=== PATIENT | female | born 1930 | race Caucasian/White ===

== ENCOUNTER 2016-12-03 09:27 | Emergency (ER) | payer MEDICARE ==
[2016-12-03 13:44] LABS: Hematocrit 41 % (35-47); Hemoglobin 13.8 g/dl (12.0-16.0); Mean Corpuscular HGB Conc 34 g/dl (31-36); Mean Corpuscular Hemoglobin 28 pg (27-31); Mean Corpuscular Volume 84 fL (80-97); Mean Platelet Volume 8 um3 (7.4-10.4); Red Blood Count 4.89 10^6/ul (4.0-5.4); Red Cell Distribution Width 14 % (10.5-15); White Blood Count 6.7 10^3/ul (3.5-10.8)
[2016-12-03 14:00] LABS: Albumin 3.7 g/dL (3.2-5.2); BUN/Creatinine Ratio 22.1 (8-20); EGFR African American 80.7 (>60); EGFR Non-African American 62.7 (>60); Globulin 3.1 g/dL (2-4); Potassium 3.4 mmol/L (3.5-5.0); Total Bilirubin 0.4 mg/dL (0.2-1.0); Total Protein 6.8 g/dL (6.4-8.9)
[2016-12-03 14:01] LABS: Troponin I 0.03 ng/mL (<0.04)
--- NOTE | 2016-12-03 14:31 | RAD ---
HISTORY: Chest pain COMPARISONS: December 17, 2015 VIEWS: 1: frontal portable view of the chest at 2:18 PM FINDINGS: LINES AND TUBES: None. CARDIOMEDIASTINAL SILHOUETTE: The cardiomediastinal silhouette is normal for portable technique. PLEURA: The costophrenic angles are sharp. No pleural abnormalities are noted. LUNG PARENCHYMA: There is hyperinflation. ABDOMEN: The upper abdomen is clear. There is no subphrenic gas. BONES AND SOFT TISSUES: No bone or soft tissue abnormalities are noted. IMPRESSION: NO ACTIVE CARDIOPULMONARY DISEASE.
[2016-12-03 14:47] LABS: TSH (Thyroid Stimulating Horm) 1.75 mcIU/mL (0.34-5.60)
--- NOTE | 2016-12-03 15:18 | ED ---
Harley Matute Benjamin, scribed for Ross Alvarado MD on 12/03/16 at 1345 . Palpitations / Dysrhythmia - HPI Summary HPI Summary: 85yo female presents with fluttering beats for 3 days. Pt takes atenolol but was taken off it 3 days ago and was switched to nadolol by her PCP after being told that atenolol was in shortage. Symptoms Pt denies any pain but reports some heaviness in chest 3 days ago. Heaviness is still present. PMHx of HTN. - History of Current Complaint Chief Complaint: EDDysrhythmPalp Time Seen by Provider: 12/03/16 11:43 Hx Obtained From: Patient Onset/Duration: Sudden Onset, Lasting Days - 3 days ago Character: Fluttering Aggravating: Medication - med change Alleviating: Nothing Associated Signs & Symptoms: Chest Pain - heaviness - Allergy/Home Medications Allergies/Adverse Reactions: Allergies Allergy/AdvReac Type Severity Reaction Status Date / Time No Known Allergies Allergy Verified 12/17/15 20:05 Home Medications: Home Medications Albuterol inh POWDER (NF) [Proair Respiclick] 1 puff INH Q4HR PRN 12/03/16 [ History Confirmed 12/03/16] Aspirin EC Low Dose* [Ecotrin EC Low Dose 81 MG*] 81 mg PO DAILY 12/03/16 [ History Confirmed 12/03/16] Atenolol TAB* [Tenormin TAB* 50 MG] 50 mg PO BID 12/03/16 [History Confirmed 07/15] Fluticasone-Salmeterol 100-50* [Advair Diskus 100-50*] 1 puff INH BID 12/03/16 [ History Confirmed 12/03/16] Hydrochlorothiazide TAB* [Hydrodiuril TAB*] 25 mg PO DAILY 12/03/16 [History Confirmed 12/03/16] LoraTADine TAB(NF) [Claritin 10 MG TAB(NF)] 10 mg PO DAILY PRN 12/03/16 [ History Confirmed 12/03/16] Nadolol TAB* [Corgard TAB*] 40 mg PO DAILY 12/03/16 [History Confirmed 12/03/16] celeCOXIB CAP* [CeleBREX CAP*] 200 mg PO DAILY 12/03/16 [History Confirmed 12/03] PMH/Surg Hx/FS Hx/Imm Hx Cardiovascular History: Reports: Hx Hypertension - Immunization History Immunizations Up to Date: Unable to Obtain/Confirm Infectious Disease History: No Infectious Disease History: Denies: Traveled Outside the [place] in Last 30 Days - Family History Known Family History: Positive: Cardiac Disease - Father - Social History Occupation: Retired Lives: With Family Alcohol Use: None Substance Use Type: Reports: None Hx Tobacco Use: No Smoking Status (MU): Never Smoked Tobacco Review of Systems Constitutional: Negative Eyes: Negative ENT: Negative Positive: Palpitations - flutters, Other - chest heaviness. Negative: Chest Pain Respiratory: Negative Gastrointestinal: Negative Genitourinary: Negative Musculoskeletal: Negative Skin: Negative Neurological: Negative Psychological: Normal All Other Systems Reviewed And Are Negative: Yes Physical Exam Triage Information Reviewed: Yes Vital Signs On Initial Exam: Initial Vitals Temp Pulse Resp BP Pulse Ox 97.4 F 68 20 192/65 98 12/03/16 09:35 12/03/16 09:35 12/03/16 09:35 12/03/16 09:35 12/03/16 09:35 Vital Signs Reviewed: Yes Appearance: Positive: Well-Appearing, No Pain Distress, Well-Nourished Skin: Positive: Warm, Skin Color Reflects Adequate Perfusion, Dry Head/Face: Positive: Normal Head/Face Inspection Eyes: Positive: Normal ENT: Positive: Normal ENT inspection, Hearing grossly normal Neck: Positive: Supple, Nontender Respiratory/Lung Sounds: Positive: Clear to Auscultation, Decreased Breath Sounds - slightly decreased breath sounds Cardiovascular: Positive: RRR, Pulses are Symmetrical in both Upper and Lower Extremities. Negative: Murmur Abdomen Description: Positive: Nontender, Soft Bowel Sounds: Positive: Present Musculoskeletal: Positive: Strength/ROM Intact Neurological: Positive: Sensory/Motor Intact, Alert, Oriented to Person Place, Time Psychiatric: Positive: Affect/Mood Appropriate - [place] Coma Scale Coma Scale Total: 15 Diagnostics - Vital Signs Vital Signs Temp Pulse Resp BP Pulse Ox 12/03/16 12:00 54 15 181/51 96 12/03/16 11:52 56 16 188/71 95 12/03/16 11:50 53 13 95 12/03/16 09:35 97.4 F 68 20 192/65 98 - Laboratory Lab Results: Lab Results 10/05/17 10/05/17 10/05/17 Range/Units 13:35 13:35 13:35 WBC 6.7 (3.5-10.8) 10^3/ul RBC 4.89 (4.0-5.4) 10^6/ul Hgb 13.8 (12.0-16.0) g/dl Hct 41 (35-47) % MCV 84 (80-97) fL MCH 28 (27-31) pg MCHC 34 (31-36) g/dl RDW 14 (10.5-15) % Plt Count 208 (150-450) 10^3/ul MPV 8 (7.4-10.4) um3 Neut % (Auto) 78.7 (38-83) % Lymph % (Auto) 14.3 L (25-47) % [place] % (Auto) 4.1 (1-9) % Eos % (Auto) 2.0 (0-6) % Baso % (Auto) 0.9 (0-2) % Absolute Neuts (auto) 5.2 (1.5-7.7) 10^3/ul Absolute Lymphs (auto) 0.9 L (1.0-4.8) 10^3/ul Absolute Monos (auto) 0.3 (0-0.8) 10^3/ul Absolute Eos (auto) 0.1 (0-0.6) 10^3/ul Absolute Basos (auto) 0.1 (0-0.2) 10^3/ul Absolute Nucleated RBC 0 10^3/ul Nucleated RBC % 0.1 Sodium 133 (133-145) mmol/L Potassium 3.4 L (3.5-5.0) mmol/L Chloride 98 L (101-111) mmol/L Carbon Dioxide 29 (22-32) mmol/L Anion Gap 6 (2-11) mmol/L BUN 19 (6-24) mg/dL Creatinine 0.86 (0.51-0.95) mg/dL Est GFR ( Amer) 80.7 (>60) Est GFR (Non-Af Amer) 62.7 (>60) BUN/Creatinine Ratio 22.1 H (8-20) Glucose 153 H (70-100) mg/dL Lactic Acid 1.5 (0.5-2.0) mmol/L Calcium 9.0 (8.6-10.3) mg/dL Magnesium 2.0 (1.9-2.7) mg/dL Total Bilirubin 0.40 (0.2-1.0) mg/dL AST 15 (13-39) U/L ALT 11 (7-52) U/L Alkaline Phosphatase 67 (34-104) U/L Troponin I 0.03 (<0.04) ng/mL Total Protein 6.8 (6.4-8.9) g/dL Albumin 3.7 (3.2-5.2) g/dL Globulin 3.1 (2-4) g/dL Albumin/Globulin Ratio 1.2 (1-3) TSH 1.75 (0.34-5.60) mcIU/mL Result Diagrams: 12/03/16 13:35 12/03/16 13:35 Lab Statement: Any lab studies that have been ordered have been reviewed, and results considered in the medical decision making process. - Radiology CXR Xray Interpretation: No Acute Changes Radiology Interpretation Completed By: Radiologist - ED physician has reviewed this radiology report and agrees. Course/Dx - Course Course Of Treatment: Ms. Otto has not felt well and had chest fluttering since she was switch from atenlol to nadolol 3 daqys ago. Her W/U here was negative and she was stable so I recommended she contact Dr. Oneal tomorrow try to go back on the atenolol. - Diagnoses Provider Diagnoses: Palpitation Discharge - Discharge Plan Condition: Stable Disposition: HOME Patient Education Materials: Palpitations (ED) Referrals: Wilfrid Oneal MD [Primary Care Provider] - The documentation as recorded by the Harley powell Benjamin accurately reflects the service I personally performed and the decisions made by me, Ross Alvarado MD.
[2016-12-03 15:27] VITALS: BP 175/50
== END 2016-12-03 15:31 | disposition home or self-care (01) ==
LOC: ED 09:27
DX: R00.2 Palpitations (principal); I10 Essential (primary) hypertension
CPT/HCPCS: 36415; 71010; 80053; 83605; 83735; 84443; 84484; 85025; 93005; 99282